=== PATIENT | male | born 1950 | race Two or more races ===

== ENCOUNTER 2018-10-18 15:38 | Emergency (ER) | payer OTHER ==
[~2018-10-18] VITALS: Ht 167.6 cm; Wt 59.9 kg
[~2018-10-18 15:38] MED LIST: ATORVASTATIN CA40 MG ORAL; CEPHALEXIN500 MG ORAL; DIABETA5 MG ORAL; DIPHENHYDRAMINE25 M1 ORAL; GABAPENTIN300 MG ORAL; LOSARTAN POTASS50 MG ORAL; METFORMIN HCL500 M1 ORAL; TAMSULOSIN HCL0.4 MG ORAL
[2018-10-18] MEDS ORDERED: Isovue-300 100ml vial INJ PRN (15:45)
[2018-10-18 15:50] VITALS: BP 185/90
--- NOTE | 2018-10-18 15:57 | Emergency Room Report ---
History of Present Illness General Chief Complaint: Chest Pain Source: Patient Present Illness HPI 68-year-old male with a history of hypertension, diabetes, high cholesterol, BPH , sent by Dr. Jenkins for 5-day history of moderate intensity left-sided chest pain rating down his left arm and into his left medial scapular area. Patient denies any alleviating or exacerbating factors, denies any associated shortness of breath, syncope, hemoptysis, cough, diaphoresis, leg pain, abdominal pain, but does report he also has been noticing a mild amount of dysuria occasionally over the last week. Denies urinary retention, incomplete voiding, hematuria, testicular or genital pain, or any other symptoms. He does report he took aspirin for his chest pain yesterday, but has not tried anything today, and presents to the ED because he was sent by his PMD. Allergies: Coded Allergies: No Known Allergies (Unverified , 08/13/15) Patient History Past Medical History: see triage record Reviewed Nursing Documentation: PMH: Agreed; PSxH: Agreed Nursing Documentation-PMH Hx Hypertension: Yes Hx Diabetes: Yes Review of Systems All Other Systems: negative except mentioned in HPI Physical Exam Vital Signs Date Time Temp Pulse Resp B/P (MAP) Pulse Ox O2 Delivery O2 Flow Rate FiO2 10/18/18 15:40 98.4 92 20 145/93 (110) 95 Room Air Sp02 EP Interpretation: reviewed, normal General Appearance: no apparent distress, alert, non-toxic Head: normocephalic Eyes: bilateral eye normal inspection, bilateral eye PERRL, bilateral eye EOMI ENT: normal ENT inspection, hearing grossly normal, normal pharynx, no angioedema, normal voice, moist mucus membranes Neck: normal inspection, full range of motion, supple, supple/symm/no masses Respiratory: chest non-tender, lungs clear, normal breath sounds, chest symmetrical, palpation of chest normal Cardiovascular #1: normal peripheral pulses, regular rate, rhythm Cardiovascular #2: 2+ radial (R), 2+ radial (L), 2+ dorsalis pedis (R), 2+ dorsalis pedis (L) Gastrointestinal: normal inspection, non tender, soft, no mass, no guarding, no rebound Rectal: deferred Genitourinary: normal inspection, no CVA tenderness Musculoskeletal: back normal, gait/station normal, normal range of motion, non- tender, no calf tenderness, Theresa's Sign negative Neurologic: alert, responsive, mother tester III-XII nml as tested, motor strength/tone normal, sensory intact, speech normal Psychiatric: judgement/insight normal, memory normal, mood/affect normal Skin: normal color, no rash, warm/dry, normal turgor Lymphatic: no adenopathy Medical Decision Making Diagnostic Impression: Primary Impression: ACS (acute coronary syndrome) ER Course 68-year-old male with multiple risk factors presents with left-sided chest pain , he is found to be initially normotensive and became very hypertensive, 180s over 90s without any obvious injuries in his clinical condition, I have given him 10 of IV Lopressor, and will obtain a chest CT angiogram given the nature of his pain radiating to his back in the setting of hypertension. Patient does not appear toxically ill, and reports the pain is been steady and moderate for the past 5 days and is not worse today. His physical exam is unremarkable as well, but the history is very concerning. Patient's CT chest abdomen pelvis is negative for dissection or other acute abnormalities, patient was given aspirin, and I discussed the case with Dr. Colunga from [facility] who agreed to accept the patient in transfer EKG Diagnostic Results EKG Time: 16:18 EP Interpretation: no stemi Rate: normal Rhythm: NSR ST Segments: no acute changes ASA given to the pt in ED: Yes Rhythm Strip Diag. Results Rhythm Strip Time: 15:56 EP Interpretation: yes Rate: 74 Rhythm: NSR, no PVC's, no ectopy CT/MRI/US Diagnostic Results CT/MRI/US Diagnostic Results : Imaging Test Ordered: cta chest/abdomen/pelvis Reevaluation Time: 17:04 patient's BP is 135/66 after getting lopressor 10mg iv, will continue to monitor Last Vital Signs Date Time Temp Pulse Resp B/P (MAP) Pulse Ox O2 Delivery O2 Flow Rate FiO2 10/18/18 15:40 98.4 92 20 145/93 (110) 95 Room Air Status: improved Disposition: ER [facility] Condition: Stable OSCAR SALGADO M.D Oct 18, 2018 15:57
[2018-10-18] MEDS: Metoprolol Tartrate 10 MG in D5W 55 ML IVPB SCH ×2 (16:03→17:57)
[2018-10-18 16:24] LABS: BASOPHILS % (AUTO) 0.6 % (0.0-2.0); EOSINOPHILS % (AUTO) 0.6 % (0.0-3.0); HEMATOCRIT 47.1 % (42.0-52.0); HEMOGLOBIN 16.6 G/DL (14.2-18.0); LYMPHOCYTES % (AUTO) 38.1 % (20.0-45.0); MEAN CORPUSCULAR VOLUME 84 FL (80-99); MONOCYTES % (AUTO) 6.8 % (1.0-10.0); PLATELET COUNT 221 K/UL (150-450); RED BLOOD COUNT 5.61 M/UL (4.70-6.10); RED CELL DISTRIBUTION WIDTH 11.2 % (11.6-14.8); WHITE BLOOD COUNT 7.5 K/UL (4.8-10.8)
[2018-10-18 16:35] LABS: ANION GAP 10 mmol/L (5-15); BLOOD UREA NITROGEN 21 mg/dL (7-18); CALCIUM 9.2 MG/DL (8.5-10.1); CARBON DIOXIDE 27 MMOL/L (21-32); CHLORIDE 103 MMOL/L (98-107); POTASSIUM 3.8 MMOL/L (3.5-5.1); SODIUM 139 MMOL/L (136-145)
[2018-10-18 16:40] LABS: ALANINE AMINOTRANSFERASE 39 U/L (12-78); ALBUMIN/GLOBULIN RATIO 1.1 (1.0-2.7); ALKALINE PHOSPHATASE 72 U/L (46-116); ASPARTATE AMINO TRANSFERASE 20 U/L (15-37); BILIRUBIN,TOTAL 0.6 MG/DL (0.2-1.0)
[2018-10-18 17:13] VITALS: BP 135/66
[2018-10-18] MEDS ORDERED: Aspirin Baby 81mg ORAL ONE (17:45)
[2018-10-18 20:02] VITALS: BP 140/72
--- NOTE | 2018-10-19 17:46 | Diagnostic Imaging Report ---
Indication: Chest and abdominal pain. Dysuria Technique: Continuous helical transaxial imaging of the chest, abdomen and pelvis was obtained from the lung bases to the pubic symphysis during intravenous contrast administration. Multiple phases of enhancement obtained. Coronal 2-D reformats were also obtained. Study obtained in a Siemens sensation [address] Automatic Exposure Control was utilized. Total Dose length Product (DLP): 996.[address] Dose Index Volume (CTDIvol): 11.54,10.01 mGy Comparison: None Findings: CT CHEST: There is mild dependent posterior basal atelectasis. There is no infiltrate or consolidation. No pleural effusion or adenopathy identified. The heart and mediastinum appear unremarkable. Soni appear unremarkable. There is no pericardial effusion. CT abdomen pelvis: There is no hydronephrosis or renal stones. Bowel gas pattern is nonobstructive. The liver and spleen appear unremarkable. The kidneys enhance normally bilaterally. No evidence of abscess. Gallbladder is contracted. Pancreas is unremarkable. Adrenal glands are unremarkable. There is no free fluid. Appendix is normal. Bladder is unremarkable. Calcification of aorta demonstrated. IMPRESSION: No acute findings in the chest abdomen or pelvis identified. Incidental findings including atherosclerotic vascular disease, contracted gallbladder, normal appendix demonstrated. The CT scanner at [facility] is accredited by the [employer] and the scans are performed using dose optimization techniques as appropriate to a performed exam including Automatic Exposure control.
== END 2018-10-18 20:05 | disposition short-term general hospital (02) ==
LOC: EMR 16:13
DX: I24.9 Acute ischemic heart disease, unspecified (principal); I10 Essential (primary) hypertension; E11.9 Type 2 diabetes mellitus without complications
CPT/HCPCS: 36415; 71260; 74177; 80053; 83690; 84484; 85025; 93005; 99284; Q9967

== ENCOUNTER 2018-11-01 12:11 | Emergency (ER) | payer MEDICARE ==
[~2018-11-01] VITALS: Ht 167.6 cm; Wt 59.0 kg
--- NOTE | 2018-11-01 12:23 | NUR ---
ED Nurse Note: pt walked in c/o nose bleeding started 3 hours ago and then started to bleed again, pt denies trau,a, denies pain, pt stated he is taking flavix and aspirin. pt not in acute distress. able to answer question. will continue to monitor.
[2018-11-01] MEDS ORDERED: ASPIR 8181 MG ORAL (12:27)
[2018-11-01] MEDS ORDERED: PLAVIX75 MG ORAL (12:27)
[2018-11-01 12:45] VITALS: BP 156/91
[2018-11-01 14:01] VITALS: BP 151/85
--- NOTE | 2018-11-01 14:02 | NUR ---
ED Nurse Note: heart rate went down to 93/min. RN noted bleeding on left nasal. will notified Dr. Marques.
[2018-11-01] MEDS ORDERED: AMOXICILLIN500 MG ORAL (14:05)
[2018-11-01 14:20] VITALS: BP 148/71
--- NOTE | 2018-11-01 14:20 | NUR ---
ER DISCHARGE NOTE: Patient is cleared to be discharged per ERMD with family member, pt is aox4, on room air, with stable vital signs. pt was given dc and prescription instructions, pt was able to verbalize understanding, pt id band removed. pt is able to ambulate with steady gait. pt took all belongings.
--- NOTE | 2018-11-01 20:33 | Emergency Room Report ---
History of Present Illness General Chief Complaint: Nosebleed Source: Patient, Medical Record Present Illness HPI Patient is a 68-year-old male who presented after increased nasal bleeding. Patient recently been hospitalized for cardiac catheterization and recently started on aspirin and Plavix. Patient was noted to have increased bleeding coming from his right nares. He had attempted to put pressure on his right nare without any improvement. He was noted to have some persistent bleeding. He stated this subsequently began bleeding to the left side. He denies prior history of anemia or abnormal blood counts. He denies other prior episodes of severe bleeding from his nose. He denies other locations of bleeding.Patient had acute onset of symptoms approximate 3 hours prior to arrival. Allergies: Coded Allergies: No Known Allergies (Unverified , 08/13/15) Patient History Past Medical History: see triage record Reviewed Nursing Documentation: PMH: Agreed; PSxH: Agreed Nursing Documentation-PM Past Medical History: No History, Except For Hx Hypertension: Yes Hx Diabetes: Yes Review of Systems All Other Systems: negative except mentioned in HPI Physical Exam Vital Signs Date Time Temp Pulse Resp B/P (MAP) Pulse Ox O2 Delivery O2 Flow Rate FiO2 11/01/18 12:24 97.0 114 18 156/91 (112) 99 Room Air Sp02 EP Interpretation: normal General Appearance: no apparent distress, alert, GCS 15 ENT: normal pharynx, other - right nare with bleeding Neck: full range of motion, supple, thyroid normal Respiratory: chest non-tender, lungs clear Cardiovascular #1: normal inspection, no edema Gastrointestinal: normal inspection, non tender, soft Musculoskeletal: normal inspection Neurologic: normal inspection, alert, oriented x3, responsive Skin: normal inspection, normal color Medical Decision Making Diagnostic Impression: Primary Impression: Epistaxis ER Course Patient presented for nosebleed. Differential diagnosis included was not limited to anterior epistaxis, posterior epistaxis, coagulopathy, anemia among others. Rhinorocket was placed to left nare with resolution of bleeding. Patient was observed in the emergency department without any recurrence. Patient was advised to recheck with his primary care physician in 2 days. He was given prescription for amoxicillin for antibiotic prophylaxis. He was advised to return for any recurrent bleeding or other concerns. Last Vital Signs Date Time Temp Pulse Resp B/P (MAP) Pulse Ox O2 Delivery O2 Flow Rate FiO2 11/01/18 14:20 98.1 71 16 148/71 100 Room Air Status: improved Disposition: HOME, SELF-CARE Condition: Stable Scripts Amoxicillin* (AMOXIL*) 500 Mg Capsule 500 MG ORAL THREE TIMES A DAY, #21 CAP Prov: Jason Marques MD 11/01/18 Referrals: NON PHYSICIAN (PCP) Patient Instructions: Nosebleed, [id number] Jason Marques MD Nov 01, 2018 20:32
== END 2018-11-01 14:20 | disposition home or self-care (01) ==
LOC: EMR 12:39
DX: R04.0 Epistaxis (principal); I10 Essential (primary) hypertension; E11.9 Type 2 diabetes mellitus without complications
CPT/HCPCS: 99283